=== PATIENT | female | born 1950 | race Caucasian/White ===

== ENCOUNTER 2016-09-16 07:26 | Inpatient (IN) ==
--- NOTE | 2016-09-15 21:09 | Discharge Summary ---
<Anika De Jesus - Last Filed: 09/15/16 21:07> Date of Encounter: 09/15/16 - Discharge Diagnosis (1) Rotator cuff tear arthropathy of right shoulder Priority: Primary Status: Acute (2) Status post total replacement of right shoulder Priority: Primary Status: Acute (3) HTN (hypertension) Priority: Secondary Status: Chronic Qualifiers: Hypertension type: essential hypertension Qualified Code(s): I10 - Essential (primary) hypertension - Discharge Medications Home Medications: OxyCODONE Immed Rel [Roxicodone 5 MG] 5 - 10 mg PO Q6HR PRN #40 tablet 09/15/16 [Rx] Ca/D3/Mag#11/Zinc/Tin Flipper/Peter/Bor [Caltrate 600+D Plus Tablet] 1 each PO DAILY 05/31 [History] Cholecalciferol (D-3) [Vitamin D] 1,000 unit PO DAILY 09/16/16 [History] HYDROcodone/Acet 5/325 mg [[place] 5-325 mg] 1 tab PO Q4H PRN 09/16/16 [History] Lisinopril [Zestril] 5 mg PO DAILY 09/16/16 [History] Melatonin 10 mg PO HS 09/16/16 [History] Psyllium Husk [Fiber] 0.52 gm PO DAILY 09/16/16 [History] Ranitidine HCl [Zantac] 300 mg PO DAILY 09/16/16 [History] l Gasseri/B Bifidum/B Longum [[place] Colon Health Capsule] 1 each PO DAILY [History] Allergies/Adverse Reactions: Allergies No Known Allergies Allergy (Verified 09/16/16 08:52) Primary care physician: Froylan Smith CNP - Patient Status Disposition: Home Health Service Condition: Good - Discharge Instructions Follow Up With: Ronit Morfin PAC [Physician Ad Trafficker] - 09/27/16 2:35 pm Jose Messer MD [Partnered Physician] - 10/16/16 5:10 pm Froylan Smith CNP [Primary Care Provider] - Additional Instructions: Discharge Instructions: Total Shoulder Please call [facility] ([phone]), your Primary Care Physician, or report to the Emergency Room if you have any of the following symptoms: Nausea, vomiting, fever greater that 101.5, swelling, chest pain, shortness of breath, increased pain/redness/drainage/odor for your incision site, numbness/ tingling, or any other concerning symptoms. ACTIVITY: Always keep your arm in the sling. Do not raise your arm away from your body. Do not use your arm to help with getting in or out of bed. No weight bearing permitted. Only perform those exercises given to you by your therapist. MEDICATIONS: Upon discharge resume your home medications. Take all the medications as prescribed. Take a stool softener if taking narcotic pain medications. Stool softeners are only effective if you drink enough fluids. Drink 6-8 glass of water or fluids a day, unless this is not allowed for another health problem. Despite using stool softeners, if you haven't had a bowel movement in 3 days, please switch to a gentle laxative. Gentle laxatives are sold over the counter. You should have a bowel movement within 24 hours, if not call the office. You will be discharged from the hospital with a prescription for pain medication. You are encouraged to decrease the use of narcotic pain medication as tolerated. Should you require a refill, please call the office. [facility] prescribes narcotic pain medication for only 4-6 weeks after surgery. If you require pain medication beyond this time period, you may be referred to your Primary Care Physician or to the Pain Clinic for further evaluation. Plan ahead for refills on pain medication as many narcotics either need to be picked up at the office or mailed. It is best to call 48-72 hours in advance of needing a prescription refill so you don't run out of medication. To help control the post-operative pain, you may take NSAIDs (Aleve,Advil, Motrin, Ibuprofen, Naprosyn) or Tylenol as prescribed on the bottle in addition to the pain medication. WOUND CARE: Leave the dressing on for 7-10 days. You may change the dressing if it becomes saturated greater than 50%. Do not get the dressing wet at anytime. Wash your hands with antibacterial soap, rinse and dry prior to any wound care. If you have edwin the visiting nurse or rehab facility can remove the stapes 10-14 days after surgery and place steri-strips across the wound. Leave the steri-strips in place until they fall off on their own. You may let water from the shower run on top of the steri-strips. If you do not have a visiting nurse or rehab facility, you will need to return to the office at 10-14 days for the edwin to be removed. If you have itching or redness around the dressing call the office. FOLLOW-UP: Please follow up with your surgeon in the orthopedic clinic, as scheduled - Hospital Course Hospital course: Ms. Mcduffie is a 66 year old female - Time Spent with Patient Total time spent providing and/or coordinating discharge services: <Jose Messer - Last Filed: 09/16/16 16:08> Date of Encounter: 09/16/16 Time of Encounter: 16:08 - Discharge Diagnosis (1) Rotator cuff tear arthropathy of right shoulder Priority: Primary Status: Acute (2) Status post total replacement of right shoulder Priority: Primary Status: Acute (3) HTN (hypertension) Priority: Secondary Status: Chronic Qualifiers: Hypertension type: essential hypertension Qualified Code(s): I10 - Essential (primary) hypertension Primary care physician: Froylan Smith CNP - Patient Status Functional capacity at discharge: independent ambulation Overall status at discharge: patient is progressing back to baseline - Hospital Course Hospital course: Ms. Mcduffie is a 66 year old female Status post total shoulder replacement discharged same day received antibiotics and anticoagulation for discharge will have home health. Uneventful postoperative course. - Time Spent with Patient Total time spent providing and/or coordinating discharge services:
--- NOTE | 2016-09-15 21:10 | Physician Discharge Referral ---
ExtendedCare Referral Info Transfer To: [facility] Institutional Level of Care: Skilled - Diagnosis (1) Rotator cuff tear arthropathy of right shoulder Status: Acute (2) Status post total replacement of right shoulder Status: Acute (3) HTN (hypertension) Status: Chronic - Transfer Medications Prescriptions: OxyCODONE Immed Rel [Roxicodone 5 MG] 5 - 10 mg PO Q6HR PRN #40 tablet PRN Reason: Pain Home Medications: OxyCODONE Immed Rel [Roxicodone 5 MG] 5 - 10 mg PO Q6HR PRN #40 tablet 09/15/16 [Rx] Allergies/Adverse Reactions: Allergies No Known Allergies Allergy (Verified 09/10/16 17:01) - Respiratory Orders Smoking Cessation: Smoking cessation has been advised. For more information, call the [place] Tobacco Quit Line at 9-267-LWHENOW. CERTIFICATION: I certify that the transfer of the above named patient to an Extended Care Facility is necessary for the continuing treatment of the diagnosis listed. The above information is true and accurate reflection of patient's current condition. Confidential - Redisclosure prohibited without a patient's written consent.
[2016-09-16] MEDS ORDERED: Lidocaine -MPF 1% 2 ML VIAL ID ONE (07:55)
[2016-09-16] MEDS ORDERED: CeFAZolin Pre 2,000 MG/100 ML 2,000 MG/100 ML BAG IVPB ONE (07:55)
--- NOTE | 2016-09-16 08:02 | History & Physical Report ---
Date of Encounter: 09/16/16 Time of Encounter: 08:02 24 Hour HP Update - Instructions Instructions: If the History and Physical is less than 30 days old and was completed prior to A.M. admission and or procedure and has NOT been updated on calendar day of procedure please complete this update prior to performing procedure. - Update Patient reports changes in Medical Condition: No Changes in examination, assessment, or condition: No Changes in Medication: No Preop tests/diagnostics Reviewed: Yes Surgery Remains Indicated: Yes Consent for Planned Operative Procedure(s) Verified: Yes - Pre-Operative Checklist Preoperative Checklist Indicated: No Prophylactic Antibiotic Ordered: Yes Is VTE Prophylaxis Indicated?: Yes
[2016-09-16] MEDS ORDERED: Gabapentin 300 MG CAPSULE PO ONE (08:03)
[2016-09-16] MEDS ORDERED: Famotidine 20 MG/2 ML VIAL IVP ONE (08:03)
[2016-09-16] MEDS: Ringers Solution, Lactated 1,000 ML IVC SCH ×2 (08:15→11:38)
[2016-09-16] MEDS ORDERED: *HR* FentaNYL (PF) 100 MCG/2 ML VIAL ONE (08:38)
[2016-09-16] MEDS ORDERED: *HR* Midazolam HCl 2 MG/2 ML VIAL ONE (08:39)
[2016-09-16] MEDS ORDERED: *HR* Propofol 200 MG/20 ML VIAL IVP ONE (08:39)
[2016-09-16] MEDS ORDERED: *HR* Succinylcholine 200 MG/10 ML VIAL IVP ONE (08:40)
--- NOTE | 2016-09-16 08:44 | Anesthesia Evaluation PreOp ---
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: Other (Fibromyalgia) Other Medical History: GERD Anesthesia History: No Prior Anesthetic Complications : No Test: Negative Alcohol Use: none Medications and Allergies OxyCODONE Immed Rel [Roxicodone 5 MG] 5 - 10 mg PO Q6HR PRN #40 tablet 09/15/16 [Rx] Allergies No Known Allergies Allergy (Verified 09/10/16 17:01) - Meds/Allergy Pre-op Review Medications Reviewed: Yes Allergies Reviewed: Yes Beta Blockers on Current Med List: No Anesthesia Results - Labs Laboratory Tests 09/10/16 09/10/16 14:48 14:48 Hgb 13.0 Hct 39.5 Plt Count 227 Sodium 137 Potassium 4.2 BUN 12 Creatinine 0.71 - Imaging EKG: report reviewed (SR) Anesthesia Exam O2 Sat Height 1.56 m Height 1.56 m Weight 74.843 kg Weight 74.843 kg O2 Sat by Pulse Oximetry 98 Vital Signs Temp Pulse Resp BP Pulse Ox 98.3 F 83 18 134/73 98 09/16/16 08:02 09/16/16 08:02 09/16/16 08:02 09/16/16 08:02 09/16/16 08:02 Height: 5'1 Weight: 165 lbs NPO (# of Hours): MN Pain Scale: 0 - HEENT Pupil (Motor): Pupils equal, EOMI Mallampati: II Teeth: Normal Oral Opening: Greater than 3 - SOILED LINEN DISTRIBUTOR LOC: Oriented SOILED LINEN DISTRIBUTOR Motor: Normal RUE, Normal LUE, Normal RLE, Normal LLE, Normal Face SOILED LINEN DISTRIBUTOR Sensory: Normal: RUE, LUE, RLE, LLE, Face - Cardiac Rhythm: Regular Murmur: None JVD: No Carotid Bruit: No - Pulmonary Breath Sounds: bilateral Clear Respiratory Effort: Symmetrical Anesthesia Assess/Plan ASA Score: 2 Modified Kaleigh Scale for Level of Consciousness: Cooperative, oriented, and tranquil Anesthetic Plan: General, Regional Monitoring Plan: Standard Monitors Recovery Plan: PACU (Discussed GA and RA, agrees to proceed)
[2016-09-16] MEDS ORDERED: ROPIVACAINE HCL/PF 0.5% 30 ML VIAL ONE (09:20)
[2016-09-16] MEDS ORDERED: Tetracaine/PF 20 MG/2 ML AMPUL ONE (09:20)
[2016-09-16] MEDS ORDERED: Bupivacaine/Clonidine Syringe 1 EACH SYRINGE ONE (09:21)
--- NOTE | 2016-09-16 09:39 | Anesthesia Procedures ---
Date of Encounter: 09/16/16 Time of Encounter: 08:30 Procedures: Anesthesia - Nerve Block Procedure Date: 09/16/16 Time: 09:30 Pre-op Diagnosis: Rt Shoulder OA Surgical Procedure: Rt Total Shoulder Replacement Checklist: Correct Patient Identifier Correct side: Right Blood Thinner: No Monitor Applied: EKG, BP, Pulse Oximetry Supplemental Oxygen via Nasal Cannula (L/min): 2 Sedation: Versed (mg): 2 Indication: Post Op Analgesia Pre-op Neuro Deficits: No Block Type: Supraclavicular Catheter placed: No Depth at skin (cm): 3 Sterile Technique: Yes Ultrasound used: Yes Anatomy identified: Yes Visual spread of Local: Yes Neuro Stimulation: No Nerve Stimulator Range: 0.2 - 0.4 mA Blood on Needle Aspiration: No Smooth Injection of Local: Yes Pain with Injection of Local: No Prep: Chlorhexadine Needle: 22 x 50 mm Stimuplex Local: 0.25% Bupivicaine w/Clonidine 20 mcg/cc, Tetracaine (20), Ropivacaine ( 0.5%) Volume (cc): 30 Number of Attempts: 1 Complications: None/effective block Vitals: Vital Signs/O2 Sat/Glucose, Most Current Temp Pulse Resp BP Pulse Ox 09/16/16 09:21 74 18 130/76 100 09/16/16 09:17 98.3 F 83 18 134/73 98 09/16/16 09:12 80 18 128/76 98 09/16/16 08:02 98.3 F 83 18 134/73 98
[2016-09-16] MEDS ORDERED: EPHEDrine 50 MG/ML VIAL ONE (10:15)
[2016-09-16] MEDS ORDERED: Ondansetron 4 MG/2 ML VIAL ONE (10:23)
[2016-09-16] MEDS ORDERED: Dexamethasone 4 MG/ML VIAL ONE (10:23)
[2016-09-16] MEDS ORDERED: *HR* Promethazine 25 MG/ML VIAL IVP PRN (10:43)
--- NOTE | 2016-09-16 10:46 | Orthopedic Operative Note ---
Date of procedure: 09/16/16 Pre-op diagnosis: Right shoulder cuff tear arthropathy Post-op diagnosis: same Procedure: Procedure: Right Total Shoulder Replacment Reverse Estimated blood loss: 100 cc Hardware: Metal and polyethylene replacement: Arthrex small glenoid baseplate, 2 4.5 screws. 1 6.5 screw, 36+4 glenosphere, 7 humeral stem, poly insert 3 Exam Under anesthesia: Full motion and no instability Procedural Notes: Irreparable tear supraspinatus tendon. Grade 3 arthritic changes humeral head. Operative procedure: The patient was brought to the operating room and placed on the operating room table. After general anesthesia was administered the operative shoulder was examined. Findings were noted. The patient was placed in the modified beachchair position. All pressure points were padded appropriately. And the head was stabilized in the neutral position. The operative extremity was prepped and draped in the sterile surgical fashion. The patient received IV antibiotics prior to skin incision. A standard deltopectoral approach was made to the operative shoulder. Incision was made to the skin and subcutaneous tissue,hemo stasis was obtained with Bovie cautery. Using careful blunt dissection the cephalic vein was identified and mobilized medially. The deltopectoral interval was developed and the clavipectoral fascia was incised. The subscap was released off the lesser tuberosity and tagged with #2 FiberWire suture subscap was irreparable. The humerus was dislocated patient noted to have irreparable tear supraspinatus tendon, and the humeral cut was made along the anatomic neck. Patient noted to have grade 3 changes humeral head. Anterior and posterior Bankart retractors were placed to expose the glenoid. The glenoid guide was seated and the centering hole was made. It was reamed with the appropriate reamer. The small baseplate was seated and secured with (2) 4.5 screws and one 6.5 screw. The baseplate was irrigated and dried and the 36+4 Glenosphere was seated and secured with the Silva taper. The Silva taper was tested and found to be secure the humerus was redislocated and prepared with the diaphyseal reamers, followed by a broaching process up to the appropriate size 7 in the patient's anatomic version. The metaphyseal reamer was then utilized. Trial reduction found the shoulder to be relocatable. Trial components were removed. The appropriate 7 stem was impacted in place in the patient's anatomic version. Trial reduction found the shoulder to be relocatable and stable with the appropriate 3 Adela Trial component was removed and the real implant was seated and secured the shoulder was reduced. The shoulder had excellent motion and excellent stability and no evidence of dislocation. The deep tissue was irrigated with pulse irrigation. The PA closed the shoulder. The deltopectoral interval was closed with a running #1 PDS suture, subcutaneous tissue was irrigated and closed with 0 PDS suture, the skin was closed with Dermabond. The patient was placed in a sterile dressing, abduction brace and extubated. The patient was then transferred to the recovery room in stable condition. Anesthesia: JONI Surgeon: Jose Messer Sider: Ronit Morfin Condition: stable Disposition: PACU
--- NOTE | 2016-09-16 11:24 | Anesthesia Evaluation Post Op ---
Date of Encounter: 09/16/16 Time of Encounter: 11:30 - Vital Signs Vital Signs: Vital Signs/O2 Sat/Glucose, Most Current Temp Pulse Resp BP Pulse Ox 09/16/16 10:59 97.7 F 89 16 118/61 100 09/16/16 09:49 71 16 113/68 98 09/16/16 09:38 75 16 118/63 99 09/16/16 09:21 74 18 130/76 100 09/16/16 09:17 98.3 F 83 18 134/73 98 09/16/16 09:12 80 18 128/76 98 09/16/16 08:02 98.3 F 83 18 134/73 98 - Lungs Lungs: Clear Ascult./Percussion - Airway Airway: Non-obstructed - Cardiovascular Regular Rate - Mental Status Mental Status: Alert & Oriented, Answers Appropriately - Pain Pain Scale: 0 - Nausea Vomiting Nausea Vomiting: Not Present - Hydration Hydration: Ice chips - Discharge PostOp Status: Transfer Patient to floor
[2016-09-16 11:49] LABS: Hematocrit 35.2 % (35.3-44.9); Hemoglobin 11.7 g/dL (11.5-15.4)
[2016-09-16] MEDS ORDERED: Ondansetron 4 MG/2 ML VIAL IVP PRN (12:41)
[2016-09-16] MEDS ORDERED: *HR* OxyCODONE Immed Rel 5 MG TABLET PO PRN ×2 (12:41)
[2016-09-16] MEDS ORDERED: *HR* HYDROmorphone (PF) 1 MG/ML SYRINGE IVP PRN (12:41)
[2016-09-16] MEDS ORDERED: Ringers Solution, Lactated 1,000 ML IVC SCH (12:41)
[2016-09-16] MEDS ORDERED: Naloxone 0.4 MG/ML INJ IVP PRN (12:41)
[2016-09-16] MEDS ORDERED: *HR* Enoxaparin 30 MG/0.3 ML SYRINGE SQ ONE (14:33)
[2016-09-16 15:18] VITALS: BP 100/61
--- NOTE | 2016-09-16 15:43 | Physician Discharge Referral ---
Home Health/Hosp Referral Info Transfer to: Home Health - Diagnosis (1) Rotator cuff tear arthropathy of right shoulder Priority: Primary Status: Acute (2) Status post total replacement of right shoulder Priority: Primary Status: Acute (3) HTN (hypertension) Priority: Secondary Status: Chronic - Respiratory Orders Smoking Cessation: Smoking cessation has been advised. For more information, call the [place] Tobacco Quit Line at 4-038-DFJF-NOW. - Dressing/Wound Care Site: Right Shoulder Type of Dressing/Treatments w/Frequency: Opsite placed. Keep dressing intact until first follow up appointment. If > 50% saturated,notify offfice, remove dressing and place appropriate dressing back in place. Dressing is water resistant, not water-proof. OK to shower, but do not get dressing wet. - Diet/Nutrition Diet/Nutrition Orders: Regular - Activity Activity Orders: Ambulate - Services Needed Following services are medically necessary services: Nursing, Physical Therapy, Occupational Therapy, Speech Therapy Home Care Orders: PT/OT. NWB to affected upper extremity. Follow Shoulder Precautions x 6 weeks. Stay in brace during activity and at night. Remove brace during exercises. ICE and elevate extremity frequently throughout the day. - Transfer Medications Home Medications: OxyCODONE Immed Rel [Roxicodone 5 MG] 5 - 10 mg PO Q6HR PRN #40 tablet 09/15/16 [Rx] Ca/D3/Mag#11/Zinc/Nuclear Operator/Peter/Bor [Caltrate 600+D Plus Tablet] 1 each PO DAILY 05/31 [History] Cholecalciferol (D-3) [Vitamin D] 1,000 unit PO DAILY 09/16/16 [History] HYDROcodone/Acet 5/325 mg [[place] 5-325 mg] 1 tab PO Q4H PRN 09/16/16 [History] Lisinopril [Zestril] 5 mg PO DAILY 09/16/16 [History] Melatonin 10 mg PO HS 09/16/16 [History] Psyllium Husk [Fiber] 0.52 gm PO DAILY 09/16/16 [History] Ranitidine HCl [Zantac] 300 mg PO DAILY 09/16/16 [History] l Gasseri/B Bifidum/B Longum [DNA SEQ Health Capsule] 1 each PO DAILY [History] Allergies/Adverse Reactions: Allergies No Known Allergies Allergy (Verified 09/16/16 08:52) Certification: Further, I certify that my clinical findings support that this patient is homebound (i.e. absences from home require considerable and taxing effort and are for medical reasons or zoroastrian services or infrequently or short duration when for other reasons) because: Homebound Reason: Post-surgery restriction and or conditions limit ability to leave home Attestation: My signature below is to certify that this patient is under my care and that I, or nurse practitioner, or a physician's hair assistant working with me, has a face-to -face encounter with this patient.
[2016-09-16] MEDS ORDERED: ceFAZolin 2,000 MG in D5% in Water 100 ML IVPB SCH (16:00)
[2016-09-16] MEDS ORDERED: *HR* Enoxaparin 30 MG/0.3 ML SYRINGE SQ SCH ×2 (18:00)
[2016-09-16] MEDS ORDERED: Temazepam 15 MG CAPSULE PO PRN (21:00)
[2016-09-16] MEDS ORDERED: MOM Conc 10 ML UD.LIQ PO PRN (21:00)
[2016-09-16] MEDS ORDERED: Melatonin 3 MG TABLET PO SCH (21:00)
[2016-09-16] MEDS ORDERED: Sennosides 8.6 MG TABLET PO PRN (21:00)
[2016-09-17] MEDS ORDERED: B BIFIDUM PO SCH (09:00)
[2016-09-17] MEDS ORDERED: B LONGUM PO SCH (09:00)
[2016-09-17] MEDS ORDERED: Cholecalciferol (D-3) 1,000 UNIT TABLET PO SCH (09:00)
[2016-09-17] MEDS ORDERED: Psyllium 1 PACKET POWD.PACK PO SCH (09:00)
[2016-09-17] MEDS ORDERED: GASSERI PO SCH (09:00)
[2016-09-17] MEDS ORDERED: Famotidine 20 MG TABLET PO SCH (09:00)
[2016-09-17] MEDS ORDERED: (Ca/D3/Mag#11/Zinc/Cop/Mang/Bor [Caltrate 600+D Plus PO SCH (09:00)
== END 2016-09-16 17:50 | disposition home health service (06) | DRG 483 ==
LOC: SAMDAY 07:26 → 3NENU 11:54
PROVIDERS: ADMIT Orthopaedic Surgery; ATTEND Orthopaedic Surgery